=== PATIENT | female | born 1985 | race African-American/Black ===

== ENCOUNTER 2017-05-03 12:11 | Emergency (ER) | payer OTHER ==
[~2017-05-03] VITALS: Ht 170.2 cm; Wt 80.0 kg
[2017-05-03 12:12] VITALS: BP 136/87; PULSE 77; RESP 20; TEMP 98.7; O2SAT 100
[2017-05-03] MEDS ORDERED: prenatal vitamin PO (12:33)
--- NOTE | 2017-05-03 13:09 | PD ---
HPI . 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 She immediately washed her eye. 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 This patient is immune to hepatitis B. The source patient is known. He is reportedly HIV and hepatitis B negative. I will attempt to obtain confirmatory testing on the source patient. COUNT INCLUDES THE [facility] Past Medical History Medical History: Denies Significant Hx Diminished Hearing: No ?: LMP: 02/06/17 Past Surgical History Other Surgery: Yes (LRFT TIBIA x2 with titanium lakshmi) Social History Alcohol Use: No Tobacco Use: No Substance Use: No Allergies-Medications (Allergen,Severity, Reaction): Coded Allergies: No Known Allergies (Unverified , 05/03/17) Reported Meds & Prescriptions Reported Meds & Active Scripts Active Reported [ vitamin] 1 Tab PO DAILY Review of Systems Except as stated in HPI: all other systems reviewed are Neg Physical Exam Narrative GENERAL: This is a pleasant female who is in no acute distress. SKIN: Warm and dry. HEAD: Normocephalic/atraumatic. EYES: Clear conjunctiva. NECK: Full range of motion with no apparent discomfort. CARDIOVASCULAR: Regular rate and rhythm. RESPIRATORY: Nonlabored. MUSCULOSKELETAL: Atraumatic. NEUROLOGICAL: Nonfocal. PSYCHIATRIC: Appropriate mood and affect. Data Data Last Documented VS Vital Signs Date Time Temp Pulse Resp B/P (MAP) Pulse Ox O2 Delivery O2 Flow Rate FiO2 05/03/17 12:29 19 05/03/17 12:12 98.7 77 136/87 (103) 100 Room Air MDM Medical Decision Making Medical Screen Exam Complete: Yes Emergency Medical Condition: Yes Differential Diagnosis Differential diagnosis includes exposure to a noninfected patient, exposure to an HIV infected patient, exposure to a hepatitis infected patient. Narrative Course This patient presents following exposure to lidocaine and blood to her eye. The source patient has been incarcerated before but has no known history of HIV or hep B/hep C. This is felt to be a low risk infection. Therefore, prophylactic antivirals will not be started. The patient is in agreement with this decision. 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
[2017-05-03 13:21] VITALS: BP 136/87
== END 2017-05-03 13:22 | disposition home or self-care (01) ==
LOC: NEPC 12:11
DX: Z77.21 Contact with and (suspected) exposure to potentially hazardous body fluids (principal); X58.XXXA Exposure to other specified factors, initial encounter; Y93.F9 Activity, other caregiving; Y99.0 Civilian activity done for income or pay
CPT/HCPCS: 99281

== ENCOUNTER 2017-11-18 04:06 | Inpatient (IN) | payer OTHER ==
[2017-11-18] VITALS (79 sets, daily range): BP systolic 104–145; BP diastolic 49–92; PULSE 16–151; RESP 12–20; TEMP 97.5–98.5; O2SAT 97–99
[~2017-11-18] VITALS: Ht 170.2 cm; Wt 93.0 kg
[~2017-11-18 04:06] MED LIST: prenatal vitamin PO
--- NOTE | 2017-11-18 04:40 | PD ---
HPI Chief Complaint Contractions Date Seen: Nov 18, 2017 Time Seen: 04:29 Travel History International Travel<30 Days: No Contact w/Intl Traveler<30Days: No Known Affected Area: No History of Present Illness HPI 32-year-old who is at 40 weeks and 5 days comes in complaining of contractions since 1 AM. Patient has had contractions intermittently over the past few weeks but this episode was much lengthier than her prior episodes. She was checked on Wednesday and her cervix was 1 cm and [facility] and induction of labor. She denies vaginal bleeding discharge or ruptured membranes. She is group B strep negative Weeks Gestation: 40 (40.5) Para: 0 : 2 History Past Medical History Medical History: Denies Significant Hx Past Surgical History Surgical History: No Previous Surgery Family History Family History: Negative Social History Alcohol Use: No Tobacco Use: No Substance Abuse: No Allergies-Medications (Allergen,Severity, Reaction): Coded Allergies: No Known Allergies (Unverified , 05/03/17) Home Meds Reported Medications [ vitamin] No Conflict Check, 1 TAB PO DAILY 05/03/17 Review of Systems Except as stated in HPI: all other systems reviewed are Neg Physical Exam Narrative GENERAL: Well-nourished, well-developed patient. SKIN: Warm and dry. HEAD: Normocephalic and atraumatic. EYES: No scleral icterus. No injection or drainage. ENT: No nasal drainage noted. Mucous membranes pink. Airway patent. NECK: Supple, trachea midline. No JVD. CARDIOVASCULAR: Regular rate and rhythm without murmurs, gallops, or rubs. RESPIRATORY: Breath sounds equal bilaterally. No accessory muscle use. ABDOMEN/GI: Abdomen soft, non-tender, bowel sounds present, no rebound, no guarding Gravid to [-] weeks size 40 Fundal Height: [-] GENITOURINARY: External Genitalia: intact and normal in appearance BUS glands: [-] Normal Cervix: [-] Posterior Dilatation: [-] 1 Effacement: [-] 50 Station: [-] -3 Presentation: [-] Vertex Membranes: [intact or ruptured] intact Uterine Contractions: [-] Every 3 minutes FHT's: Category: [-] 1 Baseline: [-] 140 Reactive: [-] Moderate Variability: [-] Moderate Decels: [-] Absent EXTREMITIES: No cyanosis or edema. BACK: Nontender without obvious deformity. No CVA tenderness. NEUROLOGICAL: Awake and alert. Motor and sensory grossly within normal limits. Five out of 5 muscle strength in all muscle groups. Normal speech. Data Data Vital Signs Reviewed: Yes Group B Strep: Negative MDM Medical Record Reviewed: Yes Plan 32-year-old who is at 40 weeks 5 days comes in with false labor. Patient is due to come back in this evening to initiate her cervical ripening and induction measures. We discussed prodromal labor in the possible labor precautions and to return prior to 8 PM for any symptoms c/w labor, vaginal bleeding, or ROM Diagnosis Diagnosis: Primary Impression: 40 weeks gestation of Additional Impressions: Irregular uterine contractions Variable heart rate decelerations, antepartum Chrissie Guerrero MD Nov 18, 2017 04:40
[2017-11-18] MEDS ORDERED: LACTATED RINGER'S 1000 ML INJ 1,000 ML IV PRN (04:41)
[2017-11-18] MEDS ORDERED: LIDOCAINE HCL 1% 50 ML VIAL I-DERMAL PRN (04:45)
[2017-11-18] MEDS ORDERED: ONDANSETRON HCL 4 MG/2 ML VIAL IV PUSH PRN ×2 (04:45→20:15)
[2017-11-18] MEDS ORDERED: OXYTOCIN 30 UNITS-500ML PREMIX 500 ML IV ONE ×2 (04:45→20:15)
[2017-11-18] MEDS ORDERED: SODIUM CHLORID 0.9% 500 ML INJ 500 ML IV PRN (04:45)
[2017-11-18] MEDS ORDERED: CITRIC ACID-SODIUM CITRATE LIQ 30 ML UDC PO SCH (04:45)
[2017-11-18] MEDS ORDERED: LIDOCAINE HCL 1% 50 ML VIAL INFIL PRN (04:45)
[2017-11-18] MEDS ORDERED: MINERAL OIL 10 ML VIAL TOPICAL PRN (04:45)
[2017-11-18] MEDS ORDERED: SODIUM CHLOR 0.9% 1000 ML INJ 1,000 ML IV PRN (05:01)
[2017-11-18] MEDS: LACTATED RINGER'S 1000 ML INJ 1,000 ML IV SCH ×3 (05:10→20:27)
[2017-11-18 05:29] LABS: AUTOMATED NEUTROPHIL # 10.6 TH/MM3 (1.8-7.7); BASOPHIL % 0.2 % (0.0-2.0); EOSINOPHIL # 0.1 TH/MM3 (0-0.4); EOSINOPHIL % 0.7 % (0.0-4.0); HEMATOCRIT 35.9 % (35.0-46.0); HEMOGLOBIN 12.8 GM/DL (11.6-15.3); LYMPH % 12.5 % (9.0-44.0); LYMPHOCYTE # 1.7 TH/MM3 (1.0-4.8); MEAN CELL VOLUME 80.4 FL (80.0-100.0); MEAN CORPUSCULAR HEMOGLOBIN 28.6 PG (27.0-34.0); MEAN CORPUSCULAR HGB CONC 35.6 % (32.0-36.0); MEAN PLATELET VOLUME 8.1 FL (7.0-11.0); MONO % 9.7 % (0.0-8.0); MONOCYTE # 1.3 TH/MM3 (0-0.9); NEUT % 76.9 % (16.0-70.0); PLATELET COUNT 251 TH/MM3 (150-450); RED BLOOD COUNT 4.46 MIL/MM3 (4.00-5.30); WHITE BLOOD COUNT 13.7 TH/MM3 (4.0-11.0)
[2017-11-18 09:20] LABS: BACTERIA, URINE RARE /hpf; BILIRUBIN, URINE NEG (NEG); BLOOD, URINE NEG (NEG); GLUCOSE,URINE NEG (NEG); KETONE, URINE NEG (NEG); MUCUS URINE FEW /lpf (OCC); NITRITE,URINE NEG (NEG); PH, URINE 6.5 (5.0-8.5); TRANSITIONAL EPI CELLS, URINE <1 /hpf; URINE COLOR YELLOW (YELLW/STRAW); URINE LEUKOCYTE ESTERASE NEG (NEG)
[2017-11-18] MEDS ORDERED: OXYTOCIN 30 UNITS/NS 500ML PREMIX IV PRN (11:00)
[2017-11-18] MEDS ORDERED: ONDANSETRON HCL 4 MG/2 ML VIAL IV ONE (12:00)
[2017-11-18] MEDS ORDERED: OXYTOCIN 10 UNIT/ML AMP IV ONE (12:00)
[2017-11-18] MEDS ORDERED: ceFAZolin INJ 1,000 MG VIAL IV ONE (12:00)
[2017-11-18] MEDS ORDERED: KETOROLAC TROMETHAMINE 30 MG/ML (IVP) VIAL IV PUSH ONE (12:00)
[2017-11-18] MEDS ORDERED: STERILE WATER FOR INJECTION 20 ML VIAL IV ONE (12:00)
[2017-11-18] MEDS ORDERED: LACTATED RINGER'S 1000 ML INJ 1,000 ML IV ONE ×2 (12:00→22:14)
[2017-11-18] MEDS ORDERED: DEXAMETHASONE SOD PHOS 4 MG/ML VIAL IV ONE (12:00)
[2017-11-18] MEDS ORDERED: LIDOCAINE 2%/EPINEPHrine PF 1:200,000 20ML SDV OTHER ONE (12:00)
[2017-11-18] MEDS ORDERED: fentaNYL 2MCG-BUPIV 0.125% INJ 100 ML ONE (15:48)
[2017-11-18] MEDS ORDERED: ePHEDrine/NS 25 MG/5 ML SYRINGE ONE (15:48)
--- NOTE | 2017-11-18 20:07 | PD.LABORPN ---
Subjective Subjective Pt has labored throughout the day and is comfortable with her epidural Objective Vital Signs Vital Signs Date Time Temp Pulse Resp B/P (MAP) Pulse Ox O2 Delivery O2 Flow Rate FiO2 11/18/17 19:35 79 18 11/18/17 19:31 74 121/59 (79) 11/18/17 19:30 70 11/18/17 19:15 63 11/18/17 19:15 66 129/81 (97) 11/18/17 19:10 65 11/18/17 19:05 70 11/18/17 19:00 66 11/18/17 19:00 66 136/87 (103) 11/18/17 18:40 57 11/18/17 18:36 59 132/84 (100) 11/18/17 18:35 61 11/18/17 18:30 67 145/92 (109) 11/18/17 18:30 98.1 16 11/18/17 18:30 69 11/18/17 18:25 64 11/18/17 18:20 65 11/18/17 18:15 60 127/79 (95) 11/18/17 18:15 59 11/18/17 18:10 57 11/18/17 18:05 57 11/18/17 18:00 59 11/18/17 18:00 16 11/18/17 18:00 59 121/75 (90) 11/18/17 18:00 16 11/18/17 17:55 56 11/18/17 17:50 57 11/18/17 17:45 58 121/75 (90) 11/18/17 17:45 58 11/18/17 17:40 58 11/18/17 17:35 70 18 17:31 130 123/65 (84) 11/18/17 17:30 65 11/18/17 17:30 16 11/18/17 17:25 67 11/18/17 17:20 66 11/18/17 17:15 62 11/18/17 17:15 65 130/79 (96) 11/18/17 17:10 69 11/18/17 17:05 72 11/18/17 17:01 62 110/49 (69) 11/18/17 17:00 98.5 16 11/18/17 17:00 70 11/18/17 16:55 62 4/5/18 16:51 63 115/56 (75) 11/18/17 16:50 70 11/18/17 16:45 66 123/71 (88) 11/18/17 16:45 64 11/18/17 16:44 85 132/79 (96) 11/18/17 16:40 70 11/18/17 16:35 79 11/18/17 16:30 73 11/18/17 16:30 84 125/68 (87) 11/18/17 16:27 98.1 16 11/18/17 16:26 76 129/69 (89) 11/18/17 16:25 82 11/18/17 16:20 81 11/18/17 16:19 78 137/88 (104) 11/18/17 16:16 81 131/79 (96) 11/18/17 16:15 82 11/18/17 16:15 16 11/18/17 16:10 72 11/18/17 16:05 71 11/18/17 16:03 151 126/85 (99) 11/18/17 15:30 16 11/18/17 14:45 16 11/18/17 14:00 16 11/18/17 12:45 16 11/18/17 12:15 16 11/18/17 11:45 98.5 16 Objective Pelvic Exam: Cervix: 4-5/70/-2-3..this exam has not changed in 4-5 hrs Dilatation: [-] Effacement: [-] Station: [-] Presentation: [-] Membranes: [intact or ruptured] Uterine Contractions:IUPC reveals ctxs at 40 mmhg q 4-7 min with occ couplets...cannot give pitocin to improve because fht's show repetitive lates FHT's: Category: 140 baseline with good BTBV, good STV, occ late..when pitocin started 2 large lates in a row...had to be stopped Baseline: [-] Reactive: [-] Variability: [-] Decels: [-] Weeks Gestation: 40 (40.5) Assessment/Plan Assessment and Plan 32 yo BF at 40 wks 5 dys in active labor with intolerance to labor with protracted labor...I rec proceeding with c/s due to the listed reasons...pt understands and agrees. Cheryle Leon MD Nov 18, 2017 20:07
[2017-11-18] MEDS ORDERED: KETOROLAC TROMETHAMINE 60 MG/2 ML (IM) VIAL IM PRN ×2 (20:15)
[2017-11-18] MEDS ORDERED: oxyCODONE/ACETAMINOPHEN 5 MG/325 MG TAB PO PRN ×2 (20:15)
[2017-11-18] MEDS ORDERED: SODIUM CHLORIDE 0.9% FLUSH 10 ML FLUSH IV FLUSH PRN (20:15)
[2017-11-18] MEDS ORDERED: SIMETHICONE 80 MG CHEWABLE TAB PO PRN (20:15)
[2017-11-18] MEDS ORDERED: TERBUTALINE INJ 1 MG/ML AMP ONE (20:22)
[2017-11-18] MEDS ORDERED: ePHEDrine/NS 25 MG/5 ML SYRINGE IV PUSH PRN (20:45)
[2017-11-18] MEDS ORDERED: NO SYSTEM NARCOTICS PRN (20:45)
[2017-11-18] MEDS ORDERED: fentaNYL 2MCG-BUPIV 0.125% 100 ML EPIDURAL SCH (20:45)
[2017-11-18] MEDS ORDERED: DO NOT ADMINISTER ANTICOAGULANTS PRN (20:45)
[2017-11-18] MEDS ORDERED: MORPHINE SULFATE PF 5 MG/10 ML VIAL ONE (20:51)
[2017-11-18] MEDS ORDERED: ACETAMINOPHEN 1000 MG/100 ML 100 ML IV ONE (20:51)
[2017-11-18] MEDS ORDERED: EPIDURAL-DIPHENHYDRAMINE HCL 50 MG CAP PO PRN (23:30)
[2017-11-18] MEDS ORDERED: EPIDURAL-NALOXONE HCL 0.4 MG/ML AMP IV PUSH PRN (23:30)
[2017-11-18] MEDS ORDERED: EPIDURAL-DO NOT ADMINISTER ANTICOAGULANTS PRN (23:30)
[2017-11-18] MEDS ORDERED: EPIDURAL-NO SYSTEMIC NARCOTICS PRN (23:30)
[2017-11-18] MEDS ORDERED: EPIDURAL-DIPHENHYDRAMINE HCL 50 MG/ML VIAL IV PUSH PRN (23:30)
[2017-11-19] VITALS (11 sets, daily range): BP systolic 114–131; BP diastolic 61–73; PULSE 75–88; RESP 14–20; TEMP 97.9–98.6; O2SAT 96–100
[2017-11-19] MEDS: SODIUM CHLORIDE 0.9% FLUSH 10 ML FLUSH IV FLUSH SCH (00:01)
[2017-11-19] MEDS ORDERED: LACTATED RINGER'S 1000 ML INJ 1,000 ML IV SCH (01:07)
[2017-11-19] MEDS: LACTATED RINGER'S 1000 ML INJ 1,000 ML IV SCH (04:22)
[2017-11-19] MEDS ORDERED: OXYTOCIN 30 UNITS-500ML PREMIX 500 ML IV PRN (06:15)
--- NOTE | 2017-11-19 08:02 | HHI.OB ---
Subjective Post Operative Day: 1 Remarks Pt doing well, good pain control, no n/v Objective Vitals/I&O Vital Signs Date Time Temp Pulse Resp B/P (MAP) Pulse Ox O2 Delivery O2 Flow Rate FiO2 11/19/17 04:06 98.5 75 18 124/71 (88) 11/19/17 03:46 17 11/19/17 03:20 17 11/19/17 02:20 17 11/19/17 01:20 17 11/19/17 00:20 18 11/18/17 23:34 97.9 62 17 125/67 (86) 11/18/17 22:45 112/63 (79) 11/18/17 22:36 82 18 98 11/18/17 22:35 97.5 11/18/17 22:30 107/59 (75) 11/18/17 22:30 99 11/18/17 22:29 82 18 11/18/17 22:15 105/51 (69) 11/18/17 22:15 93 13 98 11/18/17 22:00 90 12 104/54 (71) 98 11/18/17 21:45 119/58 (78) 11/18/17 21:45 98 20 98 11/18/17 21:30 104/51 (68) 11/18/17 21:30 97.8 18 11/18/17 21:30 96 97 11/18/17 20:30 97.7 18 11/18/17 19:45 76 115/65 (82) 11/18/17 19:45 74 11/18/17 19:35 79 18 11/18/17 19:31 74 121/59 (79) 11/18/17 19:30 70 11/18/17 19:15 63 11/18/17 19:15 66 129/81 (97) 11/18/17 19:10 65 11/18/17 19:05 70 11/18/17 19:00 66 11/18/17 19:00 66 136/87 (103) 11/18/17 18:40 57 11/18/17 18:36 59 132/84 (100) 11/18/17 18:35 61 11/18/17 18:30 67 145/92 (109) 11/18/17 18:30 98.1 16 11/18/17 18:30 69 4/5/18 18:25 64 11/18/17 18:20 65 11/18/17 18:15 60 127/79 (95) 11/18/17 18:15 59 11/18/17 18:10 57 11/18/17 18:05 57 11/18/17 18:00 59 11/18/17 18:00 16 11/18/17 18:00 59 121/75 (90) 11/18/17 18:00 16 11/18/17 17:55 56 11/18/17 17:50 57 11/18/17 17:45 58 121/75 (90) 11/18/17 17:45 58 11/18/17 17:40 58 11/18/17 17:35 70 11/18/17 17:31 130 123/65 (84) 11/18/17 17:30 65 11/18/17 17:30 16 11/18/17 17:25 67 11/18/17 17:20 66 11/18/17 17:15 62 11/18/17 17:15 65 130/79 (96) 11/18/17 17:10 69 11/18/17 17:05 72 11/18/17 17:01 62 110/49 (69) 11/18/17 17:00 98.5 16 11/18/17 17:00 70 11/18/17 16:55 62 11/18/17 16:51 63 115/56 (75) 11/18/17 16:50 70 11/18/17 16:45 66 123/71 (88) 11/18/17 16:45 64 11/18/17 16:44 85 132/79 (96) 11/18/17 16:40 70 11/18/17 16:35 79 11/18/17 16:30 73 11/18/17 16:30 84 125/68 (87) 11/18/17 16:27 98.1 16 11/18/17 16:26 76 129/69 (89) 11/18/17 16:25 82 11/18/17 16:20 81 11/18/17 16:19 78 137/88 (104) 11/18/17 16:16 81 131/79 (96) 11/18/17 16:15 82 11/18/17 16:15 16 11/18/17 16:10 72 11/18/17 16:05 71 11/18/17 16:03 151 126/85 (99) 11/18/17 15:30 16 11/18/17 14:45 16 11/18/17 14:00 16 11/18/17 12:45 16 11/18/17 12:15 16 11/18/17 11:45 98.5 16 11/18/17 11:38 66 120/76 (91) 11/18/17 11:00 16 11/18/17 10:30 16 11/18/17 10:30 16 11/18/17 10:00 16 11/18/17 09:30 16 11/18/17 08:55 16 11/18/17 08:24 98.1 16 11/18/17 08:21 67 127/71 (89) Result Diagram: 11/18/17 0513 Objective Remarks GENERAL: Well-nourished, well-developed patient. CARDIOVASCULAR: Regular rate and rhythm without murmurs, gallops, or rubs. RESPIRATORY: Breath sounds equal bilaterally. No accessory muscle use. ABDOMEN/GI: Abdomen soft, non-tender, bowel sounds present. Incision: Clean, dry and intact. Fundus: Firm, non-tender at umbilicus. GENITOURINARY: Light to moderate bleeding. EXTREMITIES: No cyanosis or edema, non-tender, without signs of DVT. Medications and IVs Current Medications Medications (Trade) Dose Ordered Sig/Evelyn Route Start Time Stop Time Status Last Admin Lactated Ringer's 1,000 ml @ 125 mls/hr Q8H IV 11/18/17 04:41 11/18/17 20:27 Lactated Ringer's 1,000 ml @ 3,000 mls/hr Q20M PRN IV 11/18/17 04:41 11/18/17 18:36 Sodium Chloride 500 ml @ 1,000 mls/hr ONCE PRN IV 11/18/17 04:45 Sodium Chloride 1,000 ml @ 100 mls/hr Q10H PRN IV 11/18/17 05:01 (Xylocaine 1% Inj (50 ml)) 0.1 ml UNSCH X1 PRN I-DERMAL 11/18/17 04:45 11/21/17 04:44 (Bicitra Liq) 30 ml [employer] PO 11/18/17 04:45 11/22/17 04:44 (Zofran Inj) 4 mg Q6H PRN IV PUSH 11/18/17 04:45 (fentaNYL INJ) 50 mcg Q1H PRN IV PUSH 11/18/17 04:45 (fentaNYL INJ) 100 mcg Q1H PRN IV PUSH 11/18/17 04:45 11/18/17 17:00 (Xylocaine 1% Inj (50 ml)) 10 ml UNSCH X1 PRN INFIL 11/18/17 04:45 11/20/17 04:44 (Muri-Lube Oil) 10 ml UNSCH PRN TOPICAL 11/18/17 04:45 Oxytocin 500 ml @ 0 mls/hr TITRATE PRN IV 11/18/17 11:00 Lactated Ringer's 1,000 ml @ 100 mls/hr Q10H IV 11/19/17 01:07 11/19/17 21:06 11/19/17 02:00 Oxytocin 500 ml @ 100 mls/hr UNSCH X1 PRN IV 11/19/17 06:15 11/20/17 06:14 (NS Flush) 2 ml BID IV FLUSH 11/18/17 21:00 (NS Flush) 2 ml UNSCH PRN IV FLUSH 11/18/17 20:15 (Mylicon Chew) 80 mg QID PRN PO 11/18/17 20:15 (Toradol Inj) 60 mg UNSCH X1 PRN IM 11/18/17 20:15 11/19/17 20:14 (Toradol Inj) 30 mg Q6H PRN IM 11/18/17 20:15 11/19/17 20:14 (Percocet 5-325 Mg) 1 tab Q4H PRN PO 11/18/17 20:15 (Percocet 5-325 Mg) 2 tab Q4H PRN PO 11/18/17 20:15 (M-M-R Ii Inj) 0.5 ml ONCE ONCE SQ 11/19/17 16:00 11/19/17 16:01 (Boostrix Inj) 0.5 ml ONCE ONCE IM 11/19/17 16:00 11/19/17 16:01 Miscellaneous Information No systemic narcotics to be given except... UNSCH PRN .XX 11/18/17 20:45 11/19/17 20:44 Miscellaneous Information DO NOT ADMINISTER ANY ANTICOAGUL... UNSCH PRN .XX 11/18/17 20:45 11/19/17 20:44 Fentanyl/ Bupivacaine HCl 100 ml @ 0 mls/hr TITRATE EPIDURAL 11/18/17 20:45 (ePHEDrine/NS 25 MG/5 ML SYR) 10 mg UNSCH PRN IV PUSH 11/18/17 20:45 11/19/17 20:44 Cefazolin Sodium 1000 mg/Sodium Chloride 100 ml @ 200 mls/hr Q8H IV 11/19/17 05:00 11/19/17 13:29 11/19/17 04:58 Miscellaneous Information NO SYSTEMIC NARCOTICS TO BE GIVEN FO... UNSCH PRN .XX 11/18/17 23:30 11/19/17 23:29 (Narcan Inj) 0.4 mg UNSCH PRN IV PUSH 11/18/17 23:30 11/19/17 23:29 (Benadryl Inj) 25 mg Q6H PRN IV PUSH 11/18/17 23:30 11/19/17 23:29 (Benadryl) 50 mg Q6H PRN PO 11/18/17 23:30 11/19/17 23:29 Miscellaneous Information ALL NURSING DEPARTMENTS UNSCH PRN .XX 11/18/17 23:30 11/19/17 23:29 Assessment/Plan Assessment and Plan POD # 1 s/p primary c/s doing well, routine care Cheryle Leon MD Nov 19, 2017 08:02
[2017-11-19] MEDS: ACETAMINOPHEN 325 MG TAB PO PRN ×3 (10:02→20:24)
--- NOTE | 2017-11-19 10:02 | MP ---
cc: Cheryle Leon MD DATE OF OPERATION: 11/18/2017 PREOPERATIVE DIAGNOSIS: Intrauterine at 40 weeks and 5 days gestation with intolerance to labor with protracted labor and with repetitive late decelerations. POSTOPERATIVE DIAGNOSIS: Intrauterine at 40 weeks and 5 days gestation with intolerance to labor with protracted labor and with repetitive late decelerations along with a prominent sacrum. PROCEDURE PERFORMED: Primary low transverse section. OPERATING SURGEON: Cheryle Brown MD. ANESTHESIA: Epidural. FINDINGS IN SURGERY: Included a viable female, 7 pounds with 's 7 and 9, normal appearing tubes and ovaries bilaterally with a very prominent sacrum noted on exam. BLOOD LOSS: 800 mL. COMPLICATIONS: None. PROCEDURE IN DETAIL: After proper consents were obtained, blood had been typed and screened, the patient had been taken to the operating room where an adequate level of epidural anesthesia was achieved. Using a sharp knife, a Pfannenstiel skin incision was performed. This was carried down to the fascia. The fascia was nicked in the midline and extended superolaterally on each side. We then had blunt dissection of the muscles off of the fascia. Peritoneum was identified, grasped with 2 hemostats and entered sharply with the Metzenbaum scissors. This was then extended superiorly and inferiorly paying close attention to the bladder. The bladder blade was placed. Bladder flap was developed. Bladder blade was replaced. We made a transverse incision in the lower uterine segment. Controlled delivery of the vertex. Bulb suction to the oropharynx and the nares and controlled delivery of the body followed. The cord was clamped after 45 seconds x 2, cut in between and the was handed to the team in attendance. A viable female, 7 pounds 0 ounces with 's 7 and 9. At this time, cord blood was obtained. Placenta was removed and uterus was exteriorized and wiped clean of clots and debris. The uterine incision was closed with a #1 chromic suture starting at each apex and meeting in the midline in a running interlocking fashion. Excellent hemostasis noted. Irrigation was performed of the abdominal pelvic cavity. The uterus was placed back into the cavity. Reapproximation of the muscles was done with a #1 chromic suture x 1. I then closed the fascia starting at each apex and meeting in the midline in a running fashion. Irrigation was performed of the sub-Q. Hemostasis achieved with the Bovie cautery. Skin was closed with toñito and all sponge, lap, needle counts were correct x 3. MD NIKOLAI Zayas/NAHUM , 09:39 AM , 10:02 AM
[2017-11-19] MEDS ORDERED: KETOROLAC TROMETHAMINE 30 MG/ML (IVP) VIAL IV PUSH PRN (12:00)
[2017-11-19] MEDS: IBUPROFEN 600 MG TAB PO PRN ×2 (13:26→20:25)
[2017-11-19] MEDS ORDERED: MEASLES, MUMPS, RUBELLA VACCINE 0.5 ML VIAL SQ ONE (16:00)
[2017-11-19] MEDS ORDERED: DIPHTH/TETANUS/ACEL PERTUSSIS (BOOSTER) 0.5 ML VIAL/PFS IM ONE (16:00)
[2017-11-20] MEDS: IBUPROFEN 600 MG TAB PO PRN ×2 (03:15→12:36)
[2017-11-20] MEDS: ACETAMINOPHEN 325 MG TAB PO PRN ×2 (03:15→10:32)
[2017-11-20] MEDS: SODIUM CHLORIDE 0.9% FLUSH 10 ML FLUSH IV FLUSH SCH (06:53)
[2017-11-20] MEDS: LACTATED RINGER'S 1000 ML INJ 1,000 ML IV SCH (06:53)
[2017-11-20 09:00] VITALS: BP_SYST 134; BP_SYST 140; BP_DIAS 79; BP_DIAS 84; PULSE 76; RESP 20; TEMP 99.3; O2SAT 97
[2017-11-20 09:32] VITALS: TEMP 98.3
[2017-11-20] MEDS ORDERED: OXYC1TAB63 PO (10:13)
--- NOTE | 2017-11-20 10:14 | HHI.DCPOC ---
Discharge Care Plan Your Health Problems Are: delivery Report Symptoms to Your Doctor -Temperature above 100.5 degrees -Redness, of incision or excessive or foul smelling drainage -Unusual pain or calf pain -Increased vaginal bleeding -Painful or difficulty urinating -Feelings of extreme sadness or anxiety after 2 weeks Goals to Promote Your Health * To prevent worsening of your condition and complications * To maintain your health at the optimal level Directions to Meet Your Goals Take your medications as prescribed Follow your dietary instruction Follow activity as directed Ensure plenty of rest for recovery Drink fluids for hydration Keep your appointments as scheduled Take your immunizations and boosters as scheduled If your symptoms worsen call your PCP, if no PCP go to Urgent Care Center or Emergency Room Smoking is Dangerous to Your Health. Avoid second hand smoke Call the 24-hour crisis hotline for domestic abuse at Cheryle Leon MD Nov 20, 2017 10:14
--- NOTE | 2017-11-20 10:15 | HHI.DS ---
Admission Date Nov 18, 2017 at 04:48 Admitting Diagnosis Diagnosis: : Primary : Female, Single Brief History 32-year-old who is at 40 weeks and 5 days comes in complaining of contractions since 1 AM. Patient has had contractions intermittently over the past few weeks but this episode was much lengthier than her prior episodes. She was checked on Wednesday and her cervix was 1 cm and she is due to come in tonight at 8 PM for cervical ripening and induction of labor. She denies vaginal bleeding discharge or ruptured membranes. She is group B strep negative Pt Condition on Discharge: Good Discharge Disposition: Discharge Home Discharge Instructions Diet Instructions: As Tolerated, No Restrictions Activities You Can Perform: Pelvic Rest Cheryle Leon MD Nov 20, 2017 10:15
== END 2017-11-20 14:25 | disposition home or self-care (01) | DRG 766 ==
LOC: HOBED 04:06 → H2EB 04:48 → H1EA 23:05
PROVIDERS: ADMIT Obstetrics & Gynecology; ATTEND Obstetrics & Gynecology
PROC: 10D00Z1 Extraction of Products of Conception, Low, Open Approach (ICD-10-PCS; principal; 2017-11-18)
PROC: 10H07YZ Insertion of Other Device into Products of Conception, Via Natural or Artificial Opening (ICD-10-PCS; 2017-11-18)
PROC: 3E0R3BZ Introduction of Anesthetic Agent into Spinal Canal, Percutaneous Approach (ICD-10-PCS; 2017-11-18)
PROC: 00HU33Z Insertion of Infusion Device into Spinal Canal, Percutaneous Approach (ICD-10-PCS; 2017-11-18)
DX: O33.0 Maternal care for disproportion due to deformity of maternal pelvic bones (principal); O76 Abnormality in fetal heart rate and rhythm complicating labor and delivery; O63.0 Prolonged first stage (of labor); Z37.0 Single live birth; Z3A.40 40 weeks gestation of pregnancy
CPT/HCPCS: 59025; 81001; 85025; 86900; 86901; 90715; J0131; J0690; J1100; J1885; J2274; J2405; J2590; J3010; J3105; J7120